=== PATIENT | male | born 1995 | race Two or more races ===

== ENCOUNTER 2024-12-29 20:33 | Emergency (ER) | payer MEDICAID, SELFPAY ==
[2024-12-29 20:34] VITALS: BMI 17.9
[2024-12-29 21:09] VITALS: BP 129/83; PULSE 75; RESP 16; TEMP 37.1; O2SAT 97
--- NOTE | 2024-12-29 21:20 | PD.EDWOUND ---
ED Wound/Laceration-RME/HPI General Chief Complaint: Wound/Laceration Stated Complaint: LAC TO LEFT MCGILL Time Seen by Provider: 12/29/24 21:03 Arrival date/time: 12/29/24 20:33 RME / HPI RME / HPI narrative: 29-year-old male patient was brought in by family for evaluation regarding laceration to the left mcgill with a spur. Onset of symptoms earlier today. Patient called EMS and EMS poured hydrogen peroxide according to him. Patient tetanus vaccination is unknown. Patient is ambulatory. Related Data Previous Rx's ?Medication ?Instructions ?Recorded ibuprofen 600 mg tablet 600 mg PO TID PRN pain #30 tabs 12/29/24 sulfamethoxazole 800 1 tab PO BID 10 days #20 tabs 12/29/24 mg-trimethoprim 160 mg tablet (Bactrim DS) Allergies Allergy/AdvReac Type Severity Reaction Status Date / Time No Known Allergies Allergy Verified 12/29/24 20:36 Review of Systems Review of Systems Narrative Review of Systems: Review of system reviewed and within normal limits except mentioned in HPI ED Exam Narrative Physical exam: VITAL SIGNS: Reviewed. GENERAL APPEARANCE: Alert and interactive, follows commands, no acute distress, HEAD AND FACE: Non-traumatic. ENT: PERRL, pink conjunctivitis, eyelid no trauma, Mucous membrane moist. NECK: Supple, nontender, no nuchal rigidity. RECTAL: Deferred. GENITAL: Deferred. NEUROLOGICAL: Gross motor function intact sensory function intact, Appropriate for age. MUSCULOSKELETAL: low back nontender, full range of motion. EXTREMITIES: +3 cm laceration, left mcgill, full range of motion. SKIN: Color pink, dry, no rash, no lacerations, no abrasions, no contusions. LYMPHATICS: Deferred. Course Quality Measures none Orders Category Date Time Status Ibuprofen Tab [Motrin Tab] Med 12/29/24 21:19 Discontinued 600 mg PO X1 ONE Lidocaine 1% Pf 5 ml [Xylocaine 1% Pf 5 ml] Med 12/29/24 21:19 Discontinued 10 ml INFL X1 ONE TET,DIP/PERT AC (Adult)-Tdap [Boostrix Adult (Tdap) Med 12/29/24 21:19 Discontinued Vacc] 0.5 ml IMI .ONCE ONE Trimethoprim/Sulfa 160/800 Ds [Bactrim Ds] Med 12/29/24 21:19 Discontinued 1 tab PO X1 ONE Vital Signs Vital signs: Vital Signs Temperature 98.8 F 12/29/24 21:09 Pulse Rate 75 12/29/24 21:09 Respiratory Rate 16 12/29/24 21:09 Blood Pressure 129/83 12/29/24 21:09 Pulse Oximetry (%) 97 12/29/24 21:09 Oxygen Delivery Method Room Air 12/29/24 21:09 Procedures -ED Laceration Laceration 1: Site: lower extremity Side (If applicable): left Size (cm): 3 Description: linear Depth: simple, single layer Local Anesthetic: lidocaine 1% Amount of anesthesia used (mL): 5 Pre-repair: wound explored, irrigated extensively and deep structures intact Skin layer closed with: nylon Size (cm): 4-0 Number of sutures: 5 Technique: simple, interrupted Wound / Laceration MDM Narrative MDM Narrative:: 29-year-old male patient was brought in by family for evaluation regarding laceration to the left mcgill with a spur. Onset of symptoms earlier today. Patient called EMS and EMS poured hydrogen peroxide according to him. Patient tetanus vaccination is unknown. Patient is ambulatory. Patient received Bactrim, Boostrix and Motrin Repair and suturing was done by me see procedure notes. I was able to clean the wound with 1 L of NS and a bottle of Betadine. On reevaluation I did not notice any foreign body wound, looks clean Patient data External records reviewed:: None Clinical information provided by:: patient Social determinants that could affect healthcare access:: none Patient has the following chronic illnesses:: None How is presenting disease/condition affected by chronic disease/condition?: no chronic disease Evaluation data The following diagnostics were reviewed and interpreted by me:: other (specify) (None) Lab and/or radiology exams considered but not ordered:: None Interpretation Summary: None Medications / Prescriptions Medications or Prescriptions considered but not ordered:: None Medication administrations:: Medication Administration History Discontinued Medications Diphtheria/Tetanus/Acell Pertussis (Diphth,Pertuss(Acell),Tet Vac 0.5 Ml Syr- Adult) 0.5 ml IMi .ONCE ONE Stop: 12/29/24 21:20 Last Admin: 12/29/24 21:48 Dose: 0.5 ml Documented By: Ibuprofen (Ibuprofen Tab 600 Mg Tablet) 600 mg PO X1 ONE Stop: 12/29/24 21:20 Last Admin: 12/29/24 21:47 Dose: 600 mg Documented By: Lidocaine HCl (Lidocaine Inj Pf 1% 5 Ml Vial) 10 ml INFL X1 ONE Stop: 12/29/24 21:20 Last Admin: 12/29/24 21:51 Dose: 10 ml Documented By: Trimethoprim/Sulfamethoxazole (Trimethoprim/Sulfa 160/800 Ds Tablet) 1 tab PO X1 ONE Stop: 12/29/24 21:20 Last Admin: 12/29/24 21:47 Dose: 1 tab Documented By: Bactrim Motrin and Boostrix Consultations Consultation(s) initiated? (list below): No Diagnosis Wound Differential Diagnosis: laceration, abrasion and avulsion of skin Most likely diagnosis given after review of the tests above:: Leg laceration Admission Indicated Admission indicated?: not indicated Admission Request Was there a request for admission?: No Admission Attestation Admission request attestation: Stable Disposition Plan Disposition Plan: Discharge Discharge Attestation Discharge Attestation: The patient was given an opportunity to ask questions and understood the discharge instructions. Discharge instructions specifically effects, indications for sooner follow up or return to the emergency department, and the expected course of current diagnosis. Patient condition: Stable Discharge Plan Plan Patient Disposition: HOME (Self Care) Disposition Comment: stable Prescriptions/Referrals Prescriptions/Med Rec: New sulfamethoxazole-trimethoprim [Bactrim DS] 800-160 mg tablet 1 tab PO BID 10 Days Qty: 20 0RF ibuprofen 600 mg tablet 600 mg PO TID PRN (Reason: pain) Qty: 30 0RF Referrals: No Primary/Family,Physician [Primary Care Provider] - In 1 week Problem List Clinical Impression: Laceration of leg Patient/Caregiver Discharge Instructions Discharge Activity: activity as tolerated Education Materials: ED Laceration: All Closures Additional Instructions: Thank you for the opportunity for serving you today. You are stable for discharged . You are advised to: Follow-up with your PCP in 1 to 2 days Return to ED for worsening of symptoms, redness, puslike drainage Increase oral fluids Take medication as prescribed Daily dressing with bacitracin as needed For removal of sutures in 7 to 10 days Print Language: Setswana Stand Alone Forms: Doreen Award Info., Patient Portal Info Letter BRONWYN/ALIDA Supervising Physician BRONWYN/ALIDA Supervising Physician: MD Lb
[2024-12-29] MEDS: IBUPROFEN TAB 600 MG TABLET PO (21:47)
[2024-12-29] MEDS: TRIMETHOPRIM/SULFA 160/800 DS TABLET 1 TAB PO (21:47)
[2024-12-29] MEDS: DIPHTH,PERTUSS(ACELL),TET VAC 0.5 ML SYR- ADULT IMi (21:48)
[2024-12-29] MEDS: LIDOCAINE INJ PF 1% 5 ML VIAL 10 ML INFL (21:51)
== END 2024-12-29 23:37 | disposition home or self-care (01) ==
PROVIDERS: Emergency Provider Emergency Medicine
DX: S81.812A Laceration without foreign body, left lower leg, initial encounter (principal); X58.XXXA Exposure to other specified factors, initial encounter; Z23 Encounter for immunization
CPT/HCPCS: 12002; 90471; 90715; 99283; J3490; A9270